=== PATIENT | female | born 1940 | race Caucasian/White ===

== ENCOUNTER → 2024-04-14 13:13 | Outpatient (REF) | payer MEDICARE, OTHER, SELFPAY | LOC: WDC 13:13 | PROVIDERS: ATTENDING PHYSICIAN Family Medicine | DX: Z12.31 Encounter for screening mammogram for malignant neoplasm of breast (principal) | CPT/HCPCS: 77063; 77067 ==

== ENCOUNTER → 2024-05-26 12:31 | Outpatient (REF) | payer MEDICARE, OTHER, SELFPAY | LOC: RAD 12:31 | PROVIDERS: ATTENDING PHYSICIAN Nurse Practitioner Adult Health; FAMILY PHYSICIAN Family Medicine | DX: R91.8 Other nonspecific abnormal finding of lung field (principal) | CPT/HCPCS: 71250 ==

== ENCOUNTER → 2024-07-17 07:55 | Outpatient (REF) | payer MEDICARE, OTHER, SELFPAY | LOC: DHCBC/DCA 07:55 | PROVIDERS: ATTENDING PHYSICIAN Physician Assistant; FAMILY PHYSICIAN Family Medicine | DX: I10 Essential (primary) hypertension (principal); Z86.79 Personal history of other diseases of the circulatory system; E78.00 Pure hypercholesterolemia, unspecified; I25.10 Atherosclerotic heart disease of native coronary artery without angina pectoris; R06.02 Shortness of breath | CPT/HCPCS: 78452; 93017; A9500 ==

== ENCOUNTER → 2025-04-19 09:51 | Outpatient (REF) | payer MEDICARE, OTHER, SELFPAY | LOC: WDC 09:51 | PROVIDERS: ATTENDING PHYSICIAN Family Medicine | DX: Z12.31 Encounter for screening mammogram for malignant neoplasm of breast (principal) | CPT/HCPCS: 77063; 77067 ==

== ENCOUNTER → 2025-06-05 09:55 | Outpatient (REF) | payer MEDICARE, OTHER, SELFPAY | LOC: HWRAD 09:55 | PROVIDERS: ATTENDING PHYSICIAN Nurse Practitioner Adult Health; FAMILY PHYSICIAN Family Medicine | DX: D86.0 Sarcoidosis of lung (principal); R91.8 Other nonspecific abnormal finding of lung field | CPT/HCPCS: 71250 ==

== ENCOUNTER 2025-06-28 10:15 | Emergency (ER) | payer SELFPAY ==
[2025-06-28 10:23] VITALS: BMI 22.1
[2025-06-28 10:25] VITALS: BP 159/80
[2025-06-28 10:26] VITALS: BP 159/80
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
[2025-06-28 10:58] LABS: Hematocrit 46.7 % (37.0-47.0); Hemoglobin 15.1 g/dL (12.0-16.0); Mean Corp Hgb Conc. 32.3 g/dL (33.0-37.0); Mean Corpuscular Volume 91.9 fL (81.0-99.0); Nucleated Red Blood Cells % 0 %; Platelet Count 190 10^3/uL (130-400); Red Cell Dist. Width 13.3 % (11.5-14.5)
[2025-06-28 11:02] VITALS: BP 157/84
[2025-06-28 11:15] LABS: ALT (SGPT) 14 U/L (0-35); AST (SGOT) 27 U/L (14-36); Albumin 3.9 g/dl (3.5-5.0); Alkaline Phosphatase 100 U/L (38-126); Blood Urea Nitrogen 32 mg/dl (7-17); Calcium 9.6 mg/dl (8.4-10.2); Carbon Dioxide 23 mmol/L (22-30); Chloride 111 mmol/L (98-107); Estimated Creatinine Clearance 39 ml/min; Glucose 163 mg/dl (70-99); Potassium 4.2 mmol/L (3.5-5.1); Sodium 139 mmol/L (135-145); Total Protein 6.0 g/dl (6.3-8.2); eGFR > 60.00
[2025-06-28 11:26] LABS: Troponin I < 0.012 ng/ml
[2025-06-28 12:00] VITALS: BP 147/73
== END 2025-06-28 13:17 | disposition home or self-care (01) ==
LOC: EMR 10:15
PROVIDERS: EMERGENCY PHYSICIAN Student in an Organized Health Care Education/Training Program; FAMILY PHYSICIAN Family Medicine
DX: S22.31XA Fracture of one rib, right side, initial encounter for closed fracture (principal); S02.2XXA Fracture of nasal bones, initial encounter for closed fracture; V89.2XXA Person injured in unspecified motor-vehicle accident, traffic, initial encounter; E78.00 Pure hypercholesterolemia, unspecified; I10 Essential (primary) hypertension; J44.9 Chronic obstructive pulmonary disease, unspecified; Z87.891 Personal history of nicotine dependence
CPT/HCPCS: 99284; 70450; 70486; 71250; 72125; 80053; 82077; 84484; 85025; 93005

== ENCOUNTER 2025-08-29 13:32 | Emergency (ER) | payer MEDICARE, OTHER, SELFPAY ==
[2025-08-29 13:37] VITALS: BP 135/83
[2025-08-29] MEDS: ATIVAN 0.5 MG PO (15:32)
--- NOTE | 2025-08-29 15:42 | ED.GENMED ---
History of Present Illness
General
Chief Complaint: Anxiety
Time Seen by Provider: 08/29/25 15:09
History of Present Illness
History of Present Illness:
84-year-old female with some underlying history of anxiety, COPD, hypertension presenting to the emergency department for concern of grief and panic attack. Patient notes that her on Wednesday, 4 days ago. She was having
difficulty breathing, went to go see the primary care doctor who is concerned about her breathing in the setting of COPD. Additionally patient notes that her and her fell down the stairs on Wednesday. Patient had been complaining of some
back pain and hip pain, so patient was sent to the ER for further assessment. On arrival, patient notes that she cannot stop crying, does not usually cry. Patient arrives with her son. No report of any SI or HI. Patient presently denying any
difficulty breathing or any chest pain. She denies any present back pain. Denies any head injury from the fall or loss of consciousness. She is not on any blood thinners. Denies any present hip pain, does note that she has had some soreness to
the right hip, however has been ambulating without difficulty. Currently denies any additional acute medical complaints
Past History
Past History
ED Past Medical History: COPD, HTN, Hypercholesterolemia and Other (Lung Nodules)
ED Past Surgical History: Cholecystectomy, Orthopedic (R hip replacement) and Other ([facility])
Social History
Tobacco: Former smoker
Alcohol: Occasional
Personal:
Living: with family
Employment: Retired
Phy Exam
Physical Exam
Physical Exam:
General: Well-appearing, no clinical signs of dehydration, nontoxic and in no acute distress
HEENT: protecting airway
head: atraumatic
Neck: appears supple
CV: Normal heart rate, regular rhythm
Resp: No accessory muscle use, no increased work of breathing, lungs clear to auscultation bilaterally
Abd: Soft and non-distended, no tenderness to palpation
Extremities: No deformities, no swelling, no erythema. Range of motion intact to all extremities. No significant tenderness to the right hip
Neuro: alert, no focal neurologic deficit
: deferred
Rectal: deferred
Psych: Tearful, anxious
Skin: Intact
Course
Orders/Labs/Results
Orders:
Orders
08/29/25 15:23
Crisis Consult Urgent
Reason for Consult: anxiety/grieving
Lorazepam [Ativan] 0.5 mg PO NOW STA
Vital Signs
Initial and Last Documented VS:
Initial Vital Signs
Temp Pulse Resp BP Pulse Ox
97.6 F 84 22 135/83 99
08/29/25 13:37 08/29/25 13:37 08/29/25 13:37 08/29/25 13:37 08/29/25 13:37
Last Documented Vital Signs
Temp Pulse Resp BP Pulse Ox
97.6 F 84 22 135/83 99
08/29/25 13:37 08/29/25 13:37 08/29/25 13:37 08/29/25 13:37 08/29/25 13:37
MDM/Problems Addressed
MDM/Problems Addressed:
84-year-old female with history of COPD presenting for crying and anxiety. Vital signs on arrival significant for mild tachypnea which improved upon arrival to the hospital.
On exam, patient is tearful, slightly anxious, however notes that her 4 days ago. This appears consistent with acute grief. No respiratory distress with lungs clear to auscultation, without any concern for COPD exacerbation.
Patient does note that she fell down the stairs 5 days ago, currently denying any pain. No reproducible back pain, no tenderness to the hip. Head is atraumatic, denies head injury or loss of consciousness. No indication for any advanced imaging.
Patient does not presently appear to be a threat to herself or others. Family arrived, does note a lot of great social support. Crisis was consulted, will provide resources for outpatient follow-up. Ativan provided here with some improvement of
symptoms. Patient requesting prescription for home. Will provide a few tablets for home, however also discussed breathing exercises. At this time feel stable for discharge. Son at bedside and patient both feel comfortable going home. Return
precautions discussed
*Pulse Oximetry
SaO2: 99
Oxygen Mode of Delivery: Room air
Patient hypoxic: no
*Critical Care Note
Total Time (30-74mins, 75-104mins- exclusive of procedures): Not Applicable
ED Attending Note
-
Portions of this chart may have been created with voice recognition software.� Occasional wrong word or��sound alike� substitutions may have occurred due to the inherent limitations of voice recognition software.
Discharge Plan
Departure
Patient Disposition: Home (Routine Discharge)
Date of Disposition: 08/29/25
Time of Disposition: 16:29
Patient with high blood pressure during this ER visit?: No
Condition: Good
Discharge Problem:
Normal grief reaction
Instructions: Depression, Adult (DC), Generalized Anxiety Disorder (DC)
Prescriptions:
New
lorazepam [Ativan] 0.5 mg tablet
0.5 mg PO DAILY PRN (Reason: anxiety) Qty: 4 0RF
No Action
fluoxetine 20 MG capsule
20 mg PO DAILY
hydrochlorothiazide
1 tab PO DAILY
ramipril
1 tab PO DAILY
tramadol 50 mg tablet
50 mg PO BID PRN (Reason: pain) Qty: 14 0RF
Referrals:
Irina Mahan MD [Family Provider, Family Practice]
Activity Restrictions/Additional Instructions:
You were seen in the emergency department for grief and anxiety
You were found to have reassuring vital signs and exam. You were seen by our crisis team.
Please follow-up closely with your primary care physician.
Return to the emergency department for any worsening of your symptoms, or any development of chest pain, difficulty breathing, abdominal pain with persistent vomiting and inability to tolerate food or liquid by mouth (concern for dehydration),
weakness, headache or confusion, fever greater than 100.4, or any additional symptoms that are concerning to you.
Thank you for choosing [facility].
Interventions
Interventions:
*Risk Screen - Suicide Last Done: 08/29/25 13:37
*General Assessment Last Done: 08/29/25 13:37
*Neglect/Abuse Screening Last Done: 08/29/25 13:37
*ED COVID-19 Vaccine History Last Done: 08/29/25 13:37
*ED Influenza Vaccine History Last Done: 08/29/25 13:37
Discharge Date and Time
Print Language: [id number]
== END 2025-08-29 16:47 | disposition home or self-care (01) ==
LOC: EMR 13:32
PROVIDERS: EMERGENCY PHYSICIAN Student in an Organized Health Care Education/Training Program; FAMILY PHYSICIAN Family Medicine
DX: F43.22 Adjustment disorder with anxiety (principal); E78.00 Pure hypercholesterolemia, unspecified; I10 Essential (primary) hypertension; J44.9 Chronic obstructive pulmonary disease, unspecified; Z90.49 Acquired absence of other specified parts of digestive tract; Z63.4 Disappearance and death of family member
CPT/HCPCS: 99283